=== PATIENT | female | born 1970 | race Caucasian/White ===

== ENCOUNTER 2016-02-16 10:36 | Emergency (ER) | payer OTHER ==
[2016-02-16 11:14] VITALS: BP 140/70
--- NOTE | 2016-02-16 11:33 | UC ---
Upper Extremity HPI - HPI Summary HPI Summary: stepped out of the truck fell down onto ice, landed directly on her left elbow, pain radiates up to left shoulder. Hurts to move. Had a dog bite a few days ago on the left elbow, just above the olecranon where the pain is now. The dogbite is not infected, is not painful. Denies other injury. No neck pain or back pain. No head injury. - History of Current Complaint Chief Complaint: UCUpperExtremity Stated Complaint: LEFT ELBOW/SHOULDER PAIN Time Seen by Provider: 02/16/16 11:29 Hx Obtained From: Patient Hx Last Menstrual Period: 02/05 Onset/Duration: Sudden Onset, Lasting Hours, Still Present Severity Initially: Moderate Pain Intensity: 5 Pain Scale Used: 0-10 Numeric Location Of Pain: Is Discrete @ - left elbow Character: Sharp, Aching Aggravating Factor(s): Movement Alleviating Factor(s): Nothing Associated Signs And Symptoms: Positive: Swelling, Bruising. Negative: Numbness /Tingling Related History: Dominant Hand Right - Risk Factors Non-Orthopedic Risk Factor: Negative DVT Risk Factors: Negative Septic Arthritis Risk Factor: Negative - Allergies/Home Medications Allergies/Adverse Reactions: Allergies Allergy/AdvReac Type Severity Reaction Status Date / Time No Known Allergies Allergy Verified 02/16/16 11:14 Home Medications: Home Medications FLUoxetine CAP* [PROzac CAP*] 10 mg PO QPM 02/16/16 [History Confirmed 02/16/16] PMH/Surg Hx/FS Hx/Imm Hx Previously Healthy: Yes - Surgical History Surgical History: Yes Surgery Procedure, Year, and Place: skin cysts - Family History Known Family History: Positive: Cardiac Disease - father, Hypertension, Diabetes , Other - cancer - Social History Occupation: Employed Full-time - self Lives: With Family Alcohol Use: Occasionally Substance Use Type: None Smoking Status (MU): Former Smoker Review of Systems Constitutional: Negative Skin: Bruising, Other - dog bite left upper arm 3 cm from olecranon, healing Eyes: Negative ENT: Negative Respiratory: Negative Cardiovascular: Negative Gastrointestinal: Negative Genitourinary: Negative Motor: Negative Neurovascular: Negative Musculoskeletal: Arthralgia Neurological: Negative Psychological: Negative All Other Systems Reviewed And Are Negative: Yes Physical Exam Triage Information Reviewed: Yes Appearance: Well-Appearing, Well-Nourished, Pain Distress Vital Signs: Initial Vital Signs Temp 97.8 F 02/16/16 11:05 Pulse 64 02/16/16 11:05 Resp 18 02/16/16 11:05 BP 140/70 02/16/16 11:05 Vital Signs Reviewed: Yes Eyes: Positive: Conjunctiva Clear ENT: Positive: Normal ENT inspection Neck: Positive: Supple, Nontender, No Lymphadenopathy Respiratory: Positive: Chest non-tender, Lungs clear, Normal breath sounds, No respiratory distress Cardiovascular: Positive: RRR, No Murmur, Pulses Normal, Brisk Capillary Refill Musculoskeletal: Positive: Strength Intact, ROM Intact, Other: - pain left olecranon, distal pulses intact; pain on palpation left shoulder, full ROM, axillary nerve intact. Neurological Exam: Normal Neurological: Positive: Alert, Muscle Tone Normal, Other: - sensation intact Psychological Exam: Normal Skin: Positive: Other - ecchymosis left olecranon, healing dog bite left upper arm Upper Extremity Course/Dx - Course Course Of Treatment: left elbow. left shoulder. 12:35 pt states she has been her "3 hours". "Can't wait anymore. He has to drive to [facility]" Advised that I read the xray but can't be sure there is no fracture. Would need a cast if a fracture and it would change treatment. They cannot wait. They are competent to make a decision. I treated with a sling. They signed AMA. Jen Traylor RN witnesses. Advised they could have problems with that arm, permanent disability. Pt voices understanding and signs AMA. Male SO present, voices understanding. 13:28 Called pt (verified name and ) and advised her no fractures. Advised her continue the sling and ibuprofen and follow up with Dr. Roa if no improvement. Pt voices understanding. - Differential Dx/Diagnosis Differential Diagnosis/HQI/PQRI: Contusion, Fracture (Closed), Strain, Sprain Provider Diagnoses: AMA. Elbow contusion. left shoulder sprain Discharge - Discharge Plan Condition: Stable Disposition: AGAINST MEDICAL ADVICE Referrals: WILLIAM MosesZamzam [Primary Care Provider] -
[2016-02-16] MEDS ORDERED: Ibuprofen TAB* 400 MG PO ONE (11:41)
--- NOTE | 2016-02-16 12:49 | RAD ---
INDICATION: Left shoulder and elbow pain after traumatic fall on ice COMPARISON: None. TECHNIQUE: 4 views left elbow and 3 views of the left shoulder were obtained. REPORT: The visualized bones of the left shoulder and elbow are well corticated and properly aligned. There is no radiographically apparent fracture or dislocation. There is no radiographic evidence of pathologic joint effusion. IMPRESSION: Normal radiograph of the left shoulder and elbow. If the patient's symptoms persist further follow-up imaging is recommended.
== END 2016-02-16 12:35 | disposition home or self-care (01) ==
LOC: UCCORT 10:36
DX: S43.402A Unspecified sprain of left shoulder joint, initial encounter (principal); S50.02XA Contusion of left elbow, initial encounter; W00.0XXA Fall on same level due to ice and snow, initial encounter; S51.052D Open bite, left elbow, subsequent encounter; W54.0XXD Bitten by dog, subsequent encounter; Z87.891 Personal history of nicotine dependence
CPT/HCPCS: 99203; A9270-GY; G0463

== ENCOUNTER 2017-07-05 19:40 | Emergency (ER) | payer OTHER ==
[2017-07-05 20:25] VITALS: BP 127/70
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
[2017-07-05] MEDS ORDERED: Cephalexin CAP* 250 MG PO ONE (20:56)
== END 2017-07-05 21:12 | disposition home or self-care (01) ==
LOC: UCCORT 19:40
DX: S61.214A Laceration without foreign body of right ring finger without damage to nail, initial encounter (principal); X99.1XXA Assault by knife, initial encounter; Y93.9 Activity, unspecified; Y92.9 Unspecified place or not applicable; F41.9 Anxiety disorder, unspecified; Z87.891 Personal history of nicotine dependence
CPT/HCPCS: 99213; A9270-GY; G0463

== ENCOUNTER 2018-03-24 08:03 | Emergency (ER) | payer OTHER ==
[2018-03-24 09:54] VITALS: BP 136/82
[2018-03-24 10:23] LABS: Influenza A Molecular NEGATIVE (Negative); Influenza B Molecular NEGATIVE (Negative)
--- NOTE | 2018-03-24 10:30 | UC ---
General HPI - HPI Summary HPI Summary: States two days ago woke with sore throat, yesterday left work early because she had cough, congestion, subjective fevers, body aches and malaise. No SOB. No CP. No N/V/D. No abdominal pain or urinary s/s. Good PO. MEds: reviewed - History of Current Complaint Chief Complaint: UCRespiratory Stated Complaint: ST,HEADACHE,ACHES,FEVER Time Seen by Provider: 03/24/18 10:16 Hx Last Menstrual Period: states 2 yrs ago Pain Intensity: 5 - Allergy/Home Medications Allergies/Adverse Reactions: Allergies Allergy/AdvReac Type Severity Reaction Status Date / Time No Known Allergies Allergy Verified 03/24/18 09:48 Home Medications: Home Medications Ibuprofen TAB* [Advil TAB*] 600 mg PO Q6H PRN 03/24/18 [History Confirmed ] PMH/Surg Hx/FS Hx/Imm Hx Previously Healthy: Yes - Surgical History Surgical History: Yes Surgery Procedure, Year, and Place: skin cysts - Family History Known Family History: Positive: Cardiac Disease - father, Hypertension, Diabetes , Other - cancer - Social History Alcohol Use: Occasionally Substance Use Type: None Smoking Status (MU): Former Smoker Type: Cigarettes Amount Used/How Often: 1/2-1 ppd Length of Time of Smoking/Using Tobacco: 6yrs Have You Smoked in the Last Year: No When Did the Patient Quit Smoking/Using Tobacco: 2012 Review of Systems All Other Systems Reviewed And Are Negative: Yes Constitutional: Positive: Chills ENT: Positive: Sore Throat, Sinus Congestion Cardiovascular: Positive: Negative Gastrointestinal: Positive: Negative Genitourinary: Positive: Negative Physical Exam Vital Signs: Initial Vital Signs Temp 97.9 F 03/24/18 09:49 Pulse 66 03/24/18 09:49 Resp 18 03/24/18 09:49 BP 136/82 03/24/18 09:49 Pulse Ox 99 03/24/18 09:49 Course/Dx - Course Course Of Treatment: This is a previously healthy 47 yr old with flu like symptoms. Nontoxic appearing. Flu: negative. Plan. Continue supportive care. REcommend rest, ibuprofen and decongestant and cough suppressant. If symptoms persist or worsen, call primary for further evaluation - Diagnoses Provider Diagnosis: Viral syndrome Discharge - Sign-Out/Discharge Documenting (check all that apply): Patient Departure All imaging exams completed and their final reports reviewed: No Studies - Discharge Plan Condition: Good Disposition: HOME Patient Education Materials: Viral Syndrome (ED) Forms: *Work Release Referrals: Aaliyah Brandt MD [Primary Care Provider] - Additional Instructions: Continue supportive care REcommend rest, ibuprofen and decongestant and cough suppressant If symptoms persist or worsen, call primary for further evaluation - Billing Disposition and Condition Condition: GOOD Disposition: Home
== END 2018-03-24 10:36 | disposition home or self-care (01) ==
LOC: UCCORT 08:03
DX: B34.9 Viral infection, unspecified (principal); J02.9 Acute pharyngitis, unspecified; R05 Cough; R09.81 Nasal congestion; R53.81 Other malaise; R52 Pain, unspecified; Z87.891 Personal history of nicotine dependence
CPT/HCPCS: 99211; G0463

== ENCOUNTER 2018-11-24 10:40 | Emergency (ER) | payer BC, OTHER ==
[2018-11-24 11:39] VITALS: BP 132/87
--- NOTE | 2018-11-24 11:52 | UC ---
Throat Pain/Nasal John HPI - HPI Summary HPI Summary: 48 yo female presents with sore throat. She tells me that for the past 4 days she has had a left sided sore throat with left ear pain for the last 2 days. Hurts to swallow. She is eating, drinking, and tolerating po well. Has not been taking anything OTC. Denies fever, chills, sinus symptoms, rash. - History of Current Complaint Chief Complaint: UCRespiratory Stated Complaint: EAR/THROAT PAIN Time Seen by Provider: 11/24/18 11:52 Hx Obtained From: Patient Hx Last Menstrual Period: states 2 yrs ago Onset/Duration: Gradual Onset Severity: Moderate Pain Intensity: 8 Pain Scale Used: 0-10 Numeric - Allergies/Home Medications Allergies/Adverse Reactions: Allergies Allergy/AdvReac Type Severity Reaction Status Date / Time No Known Allergies Allergy Verified 11/24/18 11:39 PMH/Surg Hx/FS Hx/Imm Hx Psychological History: Anxiety, Depression - Surgical History Surgical History: Yes Surgery Procedure, Year, and Place: skin cysts - Family History Known Family History: Positive: Cardiac Disease - father, Hypertension, Diabetes , Other - cancer - Social History Occupation: Employed Full-time Lives: With Family Alcohol Use: Occasionally Substance Use Type: None Smoking Status (MU): Former Smoker Type: Cigarettes Amount Used/How Often: 1/2-1 ppd Length of Time of Smoking/Using Tobacco: 6yrs Have You Smoked in the Last Year: No When Did the Patient Quit Smoking/Using Tobacco: 2012 Review of Systems All Other Systems Reviewed And Are Negative: No Constitutional: Positive: Negative Skin: Positive: Negative Eyes: Positive: Negative ENT: Positive: Sore Throat Respiratory: Positive: Negative Cardiovascular: Positive: Negative Gastrointestinal: Positive: Negative Neurological: Positive: Negative Psychological: Positive: Negative Physical Exam - Summary Physical Exam Summary: GENERAL: NAD. WDWN. No pain distress. SKIN: No rashes, sores, lesions, or open wounds. HEENT: Head: AT/NC Eyes: EOM intact. Conjunctiva clear without inflammation or discharge. Ears: Hearing grossly normal. TMs intact, no bulging, erythema, or edema. Nose: Nasal mucosa pink and moist. NTTP maxillary and frontal sinus. Throat: Posterior oropharynx without exudates, erythema, or tonsillar enlargement. Uvula midline. NECK: Supple. Nontender. No lymphadenopathy. CHEST: CTAB. No accessory muscle use. Breathing comfortably and in no distress. CV: RRR. Pulses intact. Cap refill <2seconds NEURO: Alert. PSYCH: Age appropriate behavior. Triage Information Reviewed: Yes Vital Signs: Initial Vital Signs Temp 97.1 F 11/24/18 11:36 Pulse 63 11/24/18 11:36 Resp 18 11/24/18 11:36 BP 132/87 11/24/18 11:36 Pulse Ox 100 11/24/18 11:36 Vital Signs Reviewed: Yes Throat Pain/Nasal Course/Dx - Course Course Of Treatment: Suspect viral sore throat. Discussed viral vs bacterial causes with the pt and she prefers to be on anbx at this time. - Differential Dx/Diagnosis Provider Diagnosis: Pharyngitis Discharge ED - Sign-Out/Discharge Documenting (check all that apply): Patient Departure All imaging exams completed and their final reports reviewed: No Studies - Discharge Plan Condition: Stable Disposition: HOME Prescriptions: Amoxicillin PO (*) [Amoxicillin 500 MG CAP*] 500 mg PO Q12H #14 cap Patient Education Materials: Pharyngitis (ED) Referrals: Aaliyah Brandt MD [Primary Care Provider] - Additional Instructions: If you develop a fever, shortness of breath, chest pain, new or worsening symptoms - please call your PCP or go to the ED immediately. If your symptoms do not improve or worsen - please be rechecked by your primary doctor - Billing Disposition and Condition Condition: STABLE Disposition: Home
[2018-11-24] MEDS ORDERED: Amoxicillin PO (*) 500 MG CAP PO ONE (12:08)
== END 2018-11-24 12:25 | disposition home or self-care (01) ==
LOC: UCEAST 10:40
DX: J02.9 Acute pharyngitis, unspecified (principal); Z87.891 Personal history of nicotine dependence
CPT/HCPCS: 99212; A9270-GY; G0463